=== PATIENT | male | born 1990 | race African-American/Black ===

== ENCOUNTER 2017-10-19 22:31 | Emergency (ER) | payer MEDICAID ==
[~2017-10-19] VITALS: Ht 177.8 cm; Wt 94.0 kg
[~2017-10-19 22:31] MED LIST: NO HOME MEDS
[2017-10-19] MEDS ORDERED: ondansetron/PF 4mg/2ml inj IV ONE (23:30)
[2017-10-19] MEDS ORDERED: methylPREDNISolone sod succ 125mg/2ml vial IV ONE (23:30)
[2017-10-19] MEDS ORDERED: morphine 2 MG/ML inj. syringe IV ONE (23:30)
[2017-10-19] MEDS ORDERED: normal saline 1000ML IV soln IVB ONE (23:30)
[2017-10-19 23:55] LABS: BASOPHILS # (AUTO) 0.1 X10'3 (0-0.2); BASOPHILS % (AUTO) 0.4 % (0-1); EOSINOPHILS # (AUTO) 0.3 X10'3 (0-0.9); EOSINOPHILS % (AUTO) 1.6 % (0-6); HEMATOCRIT 39.2 % (42.0-52.0); HEMOGLOBIN 13.2 g/dl (14.0-17.9); LYMPHOCYTES # (AUTO) 2.1 X10'3 (1.1-4.8); LYMPHOCYTES % (AUTO) 12.2 % (21-51); MEAN CORPUSCULAR HEMOGLOBIN 27.3 PG (27.0-31.0); MEAN CORPUSCULAR HGB CONC 33.7 % (33.0-36.5); MEAN CORPUSCULAR VOLUME 80.9 FL (78-98); MONOCYTES # (AUTO) 1.1 X10'3 (0-0.9); MONOCYTES % (AUTO) 6.3 % (2-12); NEUTROPHILS # (AUTO) 13.5 X10'3 (1.8-7.7); NEUTROPHILS % (AUTO) 79.5 % (42-75); PLATELET COUNT 195 X10'3 (140-440); RED BLOOD COUNT 4.85 X10'6 (4.70-6.10); RED CELL DISTRIBUTION WIDTH 14.7 % (11.5-14.5); WHITE BLOOD COUNT 16.9 X10'3 (4.5-11.0)
[2017-10-20 00:11] LABS: ALANINE AMINOTRANSFERASE 36 U/L (12-78); ALBUMIN 3.6 G/DL (3.4-5.0); ALBUMIN/GLOBULIN RATIO 1.1 (1.1-1.5); ALKALINE PHOSPHATASE 70 IU/L (46-116); ANION GAP 9 (8-16); ASPARTATE AMINO TRANSFERASE 19 U/L (10-37); BILIRUBIN,TOTAL 0.2 MG/DL (0.1-1.0); BLOOD UREA NITROGEN 14 MG/DL (7-18); BUN/CREATININE RATIO 10.2 (5.4-32.0); CALCIUM 8.6 MG/DL (8.5-10.1); CHLORIDE 104 MMOL/L (99-107); CREATININE 1.37 MG/DL (0.60-1.10); GLUCOSE 104 MG/DL (70-104); LIPASE 158 U/L (73-393); POTASSIUM 4.8 MMOL/L (3.5-5.1); SODIUM 140 MMOL/L (135-145); TOTAL CARBON DIOXIDE 26.7 MMOL/L (24-32); eGFR 74 ML/MIN
[2017-10-20] MEDS ORDERED: iohexol 300mg/ml 100ml inj. ONE (00:15)
[2017-10-20] MEDS ORDERED: ondansetron/PF 4mg/2ml inj IV ONE (01:40)
[2017-10-20] MEDS ORDERED: morphine 4 MG/ML inj SYRINge IV ONE (01:40)
[2017-10-20] MEDS ORDERED: HYDR-3965 PO (01:45)
[2017-10-20] MEDS ORDERED: LOPE-155 PO (01:45)
[2017-10-20 01:58] VITALS: BP 127/73
== END 2017-10-20 03:09 | disposition home or self-care (01) ==
LOC: ER 22:32
DX: K52.9 Noninfective gastroenteritis and colitis, unspecified (principal); K92.1 Melena; F17.200 Nicotine dependence, unspecified, uncomplicated; F12.10 Cannabis abuse, uncomplicated; Z88.8 Allergy status to other drugs, medicaments and biological substances; Z79.899 Other long term (current) drug therapy
CPT/HCPCS: 36415; 74177; 80053; 83690; 85025; 85651; 96361; 96374; 96375; 96376; 99285; J2270; J2405; J2930; J7030; Q9967

== ENCOUNTER 2017-11-11 19:55 | Emergency (ER) | payer MEDICAID ==
[~2017-11-11] VITALS: Ht 175.3 cm; Wt 89.7 kg
[~2017-11-11 19:55] MED LIST changes: +HYDR-3965 PO; +LOPE-155 PO
[2017-11-11] MEDS ORDERED: OMEP40CA37 PO (20:11)
[2017-11-11] MEDS ORDERED: PRED5TAB PO (20:11)
[2017-11-11] MEDS ORDERED: ONDA4TAB6 PO (20:11)
[2017-11-11] MEDS ORDERED: DICY10CA88 PO (20:11)
[2017-11-11 22:37] LABS: BASOPHILS # (AUTO) 0.1 X10'3 (0-0.2); BASOPHILS % (AUTO) 0.2 % (0-1); EOSINOPHILS # (AUTO) 0.1 X10'3 (0-0.9); EOSINOPHILS % (AUTO) 0.4 % (0-6); HEMATOCRIT 41.1 % (42.0-52.0); HEMOGLOBIN 13.8 g/dl (14.0-17.9); LYMPHOCYTES # (AUTO) 1.5 X10'3 (1.1-4.8); LYMPHOCYTES % (AUTO) 6.9 % (21-51); MEAN CORPUSCULAR HEMOGLOBIN 27.6 PG (27.0-31.0); MEAN CORPUSCULAR HGB CONC 33.5 % (33.0-36.5); MEAN CORPUSCULAR VOLUME 82.3 FL (78-98); MEAN PLATELET VOLUME 7.7 FL (7.4-10.4); MONOCYTES # (AUTO) 0.7 X10'3 (0-0.9); MONOCYTES % (AUTO) 3.2 % (2-12); NEUTROPHILS % (AUTO) 89.3 % (42-75); PLATELET COUNT 194 X10'3 (140-440); RED CELL DISTRIBUTION WIDTH 14.9 % (11.5-14.5); WHITE BLOOD COUNT 22.4 X10'3 (4.5-11.0)
[2017-11-11 22:59] LABS: ALANINE AMINOTRANSFERASE 50 U/L (12-78); ALBUMIN 3.8 G/DL (3.4-5.0); ALKALINE PHOSPHATASE 53 IU/L (46-116); ANION GAP 10 (8-16); ASPARTATE AMINO TRANSFERASE 18 U/L (10-37); BILIRUBIN,TOTAL 0.3 MG/DL (0.1-1.0); BLOOD UREA NITROGEN 19 MG/DL (7-18); BUN/CREATININE RATIO 16.1 (5.4-32.0); CHLORIDE 104 MMOL/L (99-107); CREATININE 1.18 MG/DL (0.60-1.10); GLUCOSE 108 MG/DL (70-104); LIPASE 157 U/L (73-393); SODIUM 141 MMOL/L (135-145); TOTAL CARBON DIOXIDE 27.2 MMOL/L (24-32); TOTAL PROTEIN 7.5 G/DL (6.4-8.2); eGFR 88 ML/MIN
[2017-11-12 00:02] LABS: CLARITY,URINE CLEAR (Clear); COLOR,URINE YELLOW (Yellow); GLUCOSE, URINE NEGATIVE (Neg); KETONES,URINE NEGATIVE (Neg); LEUKOCYTE ESTERASE ,URINE NEGATIVE (Neg); NITRITES, URINE NEGATIVE (Neg); OCCULT BLOOD,URINE NEGATIVE (Neg); PROTEIN,URINE NEGATIVE (Neg)
[2017-11-12 00:06] LABS: UA COLLECTION TYPE CLN CATCH MIDSTREAM
[2017-11-12 02:00] VITALS: BP 113/43
== END 2017-11-12 03:04 | disposition home or self-care (01) ==
LOC: ER 19:57
DX: R10.11 Right upper quadrant pain (principal); F12.10 Cannabis abuse, uncomplicated; Z88.8 Allergy status to other drugs, medicaments and biological substances; Z79.899 Other long term (current) drug therapy
CPT/HCPCS: 36415; 76700; 80053; 81003; 83605; 83690; 84145; 85025; 85610; 87040; 99285

== ENCOUNTER 2019-01-28 05:29 | Emergency (ER) | payer MEDICAID ==
[~2019-01-28] VITALS: Ht 175.3 cm; Wt 106.5 kg
[~2019-01-28 05:29] MED LIST changes: +DICY10CA88 PO; -HYDR-3965 PO; +OMEP40CA37 PO; +ONDA4TAB6 PO; +PRED5TAB PO
[2019-01-28] MEDS ORDERED: ondansetron/PF 4mg/2ml inj IV ONE (07:25)
[2019-01-28 07:41] LABS: BASOPHILS # (AUTO) 0.1 X10'3 (0-0.2); BASOPHILS % (AUTO) 1.1 % (0-1); EOSINOPHILS # (AUTO) 0.2 X10'3 (0-0.9); EOSINOPHILS % (AUTO) 1.3 % (0-6); HEMATOCRIT 38.1 % (42.0-52.0); HEMOGLOBIN 12.3 g/dl (14.0-17.9); LYMPHOCYTES # (AUTO) 3.3 X10'3 (1.1-4.8); LYMPHOCYTES % (AUTO) 28.2 % (21-51); MEAN CORPUSCULAR HEMOGLOBIN 24.9 PG (27.0-31.0); MEAN CORPUSCULAR HGB CONC 32.2 g/dL (33.0-36.5); MEAN CORPUSCULAR VOLUME 77.5 FL (78-98); MEAN PLATELET VOLUME 8.1 FL (7.4-10.4); MONOCYTES # (AUTO) 0.9 X10'3 (0-0.9); NEUTROPHILS # (AUTO) 7.2 X10'3 (1.8-7.7); NEUTROPHILS % (AUTO) 61.4 % (42-75); PLATELET COUNT 240 X10'3 (140-440); RED BLOOD COUNT 4.92 X10'6 (4.70-6.10); RED CELL DISTRIBUTION WIDTH 14.4 % (11.5-14.5); WHITE BLOOD COUNT 11.7 X10'3 (4.5-11.0)
[2019-01-28 07:48] LABS: ALANINE AMINOTRANSFERASE 26 U/L (12-78); ALBUMIN 4.2 G/DL (3.4-5.0); ALKALINE PHOSPHATASE 115 IU/L (46-116); ANION GAP 7 (8-16); ASPARTATE AMINO TRANSFERASE 19 U/L (10-37); BILIRUBIN,TOTAL 0.4 MG/DL (0.1-1.0); BLOOD UREA NITROGEN 14 MG/DL (7-18); BUN/CREATININE RATIO 12.5 (5.4-32.0); CALCIUM 9.2 MG/DL (8.5-10.1); CHLORIDE 105 MMOL/L (99-107); CREATININE 1.12 MG/DL (0.60-1.10); GLUCOSE 93 MG/DL (70-104); SODIUM 137 MMOL/L (135-145); TOTAL CARBON DIOXIDE 24.7 MMOL/L (24-32); TOTAL PROTEIN 8.3 G/DL (6.4-8.2); eGFR > 90 ML/MIN
--- NOTE | 2019-01-28 08:23 | NUR ---
pt up to the bathroom,tsh result pending.
[2019-01-28 08:57] VITALS: BP 166/73
== END 2019-01-28 08:51 | disposition home or self-care (01) ==
LOC: ER 05:30
DX: R55 Syncope and collapse (principal); I10 Essential (primary) hypertension; F17.200 Nicotine dependence, unspecified, uncomplicated; G89.29 Other chronic pain; M54.5 Low back pain; Z91.011 Allergy to milk products; Z79.899 Other long term (current) drug therapy
CPT/HCPCS: 36415; 70450; 80053; 84443; 84484; 85025; 93005; 96374; 99284; J2405

== ENCOUNTER 2019-03-26 16:54 | Emergency (ER) | payer MEDICAID ==
[~2019-03-26] VITALS: Ht 172.7 cm; Wt 105.5 kg
[~2019-03-26 16:54] MED LIST changes: -LOPE-155 PO; +LOPE-190 PO; +OMEP40CA13 PO; -OMEP40CA37 PO
[2019-03-26] MEDS ORDERED: LORazepam 2 mg/ml vial IV ONE (17:05)
[2019-03-26] MEDS ORDERED: meclizine 12.5mg tablet PO ONE (17:05)
[2019-03-26] MEDS ORDERED: normal saline 1000ML IV soln IV ONE (17:05)
[2019-03-26 17:36] LABS: CLARITY,URINE CLEAR (Clear); COLOR,URINE STRAW (Yellow); GLUCOSE, URINE NEGATIVE (Neg); KETONES,URINE NEGATIVE (Neg); LEUKOCYTE ESTERASE ,URINE NEGATIVE (Neg); NITRITES, URINE NEGATIVE (Neg); OCCULT BLOOD,URINE NEGATIVE (Neg); PROTEIN,URINE NEGATIVE (Neg); UROBILINOGEN,URINE 0.2 E.U/dL (0.2-1.0)
[2019-03-26 17:38] LABS: BASOPHILS # (AUTO) 0.1 X10'3 (0-0.2); BASOPHILS % (AUTO) 1.2 % (0-1); EOSINOPHILS # (AUTO) 0.2 X10'3 (0-0.9); EOSINOPHILS % (AUTO) 2.1 % (0-6); HEMATOCRIT 38.5 % (42.0-52.0); HEMOGLOBIN 12.4 g/dl (14.0-17.9); LYMPHOCYTES # (AUTO) 3.2 X10'3 (1.1-4.8); LYMPHOCYTES % (AUTO) 35.8 % (21-51); MEAN CORPUSCULAR HEMOGLOBIN 24.5 PG (27.0-31.0); MEAN CORPUSCULAR HGB CONC 32.2 g/dL (33.0-36.5); MEAN PLATELET VOLUME 8.1 FL (7.4-10.4); MONOCYTES # (AUTO) 0.7 X10'3 (0-0.9); MONOCYTES % (AUTO) 7.5 % (2-12); NEUTROPHILS # (AUTO) 4.8 X10'3 (1.8-7.7); NEUTROPHILS % (AUTO) 53.4 % (42-75); PLATELET COUNT 210 X10'3 (140-440); RED BLOOD COUNT 5.06 X10'6 (4.70-6.10); RED CELL DISTRIBUTION WIDTH 15.5 % (11.5-14.5); UA COLLECTION TYPE URINAL
[2019-03-26] MEDS ORDERED: ketorolac trometh. 30mg/ml inj. IV ONE (17:45)
[2019-03-26] MEDS ORDERED: diphenhydrAMINE 50 mg/ml inj IV ONE (17:45)
[2019-03-26] MEDS ORDERED: metoclopramide 5 mg/ml inj IV ONE (17:45)
[2019-03-26 17:52] LABS: ALANINE AMINOTRANSFERASE 32 U/L (12-78); ALBUMIN 3.8 G/DL (3.4-5.0); ALKALINE PHOSPHATASE 105 IU/L (46-116); ANION GAP 10 (8-16); ASPARTATE AMINO TRANSFERASE 16 U/L (10-37); BILIRUBIN,TOTAL 0.2 MG/DL (0.1-1.0); BLOOD UREA NITROGEN 8 MG/DL (7-18); BUN/CREATININE RATIO 7.9 (5.4-32.0); CHLORIDE 106 MMOL/L (99-107); CREATININE 1.01 MG/DL (0.60-1.10); GLUCOSE 84 MG/DL (70-104); POTASSIUM 4.2 MMOL/L (3.5-5.1); SODIUM 142 MMOL/L (135-145); TOTAL CARBON DIOXIDE 25.9 MMOL/L (24-32); TOTAL PROTEIN 7.8 G/DL (6.4-8.2); URINE AMPHETAMINE SCREEN NEGATIVE (Neg); URINE BARBITUATE SCREEN NEGATIVE (Neg); URINE BENZODIAZEPINES SCREEN NEGATIVE (Neg); URINE CANNABINOID SCREEN POSITIVE (Neg); URINE COCAINE SCREEN NEGATIVE (Neg); URINE METHADONE SCREEN NEGATIVE (Neg); URINE OPIATE SCREEN NEGATIVE (Neg); URINE PHENCYCLIDINE SCREEN NEGATIVE (Neg); eGFR > 90 ML/MIN
[2019-03-26 17:58] LABS: PARTIAL THROMBOPLASTIN TIME 33 SECONDS (22-32)
[2019-03-26] MEDS ORDERED: MECL-111 PO (18:22)
[2019-03-26 21:13] VITALS: BP 136/93
== END 2019-03-26 21:16 | disposition home or self-care (01) ==
LOC: ER 16:55
DX: I10 Essential (primary) hypertension (principal); R42 Dizziness and giddiness; F12.90 Cannabis use, unspecified, uncomplicated; Z91.011 Allergy to milk products; Z79.899 Other long term (current) drug therapy
CPT/HCPCS: 36415; 80053; 80305; 81003; 82948; 83735; 85025; 85610; 85730; 93005; 96361; 96374; 96375; 99284; J1200; J1885; J2060; J2765; J7030; J8597

== ENCOUNTER 2019-08-28 13:42 | Emergency (ER) | payer MEDICAID ==
[~2019-08-28] VITALS: Ht 172.7 cm; Wt 105.4 kg
[~2019-08-28 13:42] MED LIST changes: +MECL-111 PO
[2019-08-28] MEDS ORDERED: normal saline 1000ML IV soln IVB ONE (16:15)
[2019-08-28] MEDS ORDERED: ondansetron/PF 4mg/2ml inj IV ONE (16:15)
--- NOTE | 2019-08-28 17:13 | NUR ---
PT GIVEN URINE CUP, AMBULATORY TO BATHROOM WITH STEADY GAIT TO PROVIDE SAMPLE PER ORDERS NOW. WILL START IV AND ADMINISTER NS IV BOLUS PER ORDERS UPON PT RETURN TO BED 10
[2019-08-28 17:37] LABS: CLARITY,URINE CLEAR (Clear); COLOR,URINE YELLOW (Yellow); GLUCOSE, URINE NEGATIVE (Neg); KETONES,URINE NEGATIVE (Neg); LEUKOCYTE ESTERASE ,URINE NEGATIVE (Neg); NITRITES, URINE NEGATIVE (Neg); OCCULT BLOOD,URINE NEGATIVE (Neg); PROTEIN,URINE NEGATIVE (Neg); UROBILINOGEN,URINE 0.2 E.U/dL (0.2-1.0)
[2019-08-28] MEDS ORDERED: metoclopramide 5 mg/ml inj IV ONE (17:40)
[2019-08-28] MEDS ORDERED: dicyclomine 10 MG capsule PO ONE (17:40)
[2019-08-28 17:43] LABS: UA COLLECTION TYPE CLN CATCH MIDSTREAM
[2019-08-28 18:01] LABS: BASOPHILS # (AUTO) 0.1 X10'3 (0-0.2); BASOPHILS % (AUTO) 1.1 % (0-1); EOSINOPHILS # (AUTO) 0.1 X10'3 (0-0.9); EOSINOPHILS % (AUTO) 1.1 % (0-6); HEMATOCRIT 38.9 % (42.0-52.0); HEMOGLOBIN 12.6 g/dl (14.0-17.9); LYMPHOCYTES # (AUTO) 3.6 X10'3 (1.1-4.8); LYMPHOCYTES % (AUTO) 27.5 % (21-51); MEAN CORPUSCULAR HEMOGLOBIN 24.5 PG (27.0-31.0); MEAN CORPUSCULAR HGB CONC 32.3 g/dL (33.0-36.5); MEAN CORPUSCULAR VOLUME 75.8 FL (78-98); NEUTROPHILS # (AUTO) 8.1 X10'3 (1.8-7.7); NEUTROPHILS % (AUTO) 62.3 % (42-75); PLATELET COUNT 245 X10'3 (140-440); RED BLOOD COUNT 5.14 X10'6 (4.70-6.10); RED CELL DISTRIBUTION WIDTH 18.3 % (11.5-14.5)
[2019-08-28 18:08] LABS: ALANINE AMINOTRANSFERASE 32 U/L (12-78); ALBUMIN 4.3 G/DL (3.4-5.0); ALBUMIN/GLOBULIN RATIO 1.1 (1.1-1.5); ALKALINE PHOSPHATASE 126 IU/L (46-116); ANION GAP 8 (8-16); ASPARTATE AMINO TRANSFERASE 19 U/L (10-37); BILIRUBIN,TOTAL 0.3 MG/DL (0.1-1.0); BLOOD UREA NITROGEN 13 MG/DL (7-18); BUN/CREATININE RATIO 10.7 (5.4-32.0); CHLORIDE 105 MMOL/L (99-107); CREATININE 1.22 MG/DL (0.60-1.10); GLUCOSE 78 MG/DL (70-104); POTASSIUM 3.9 MMOL/L (3.5-5.1); SODIUM 142 MMOL/L (135-145); TOTAL CARBON DIOXIDE 29.5 MMOL/L (24-32); TOTAL PROTEIN 8.2 G/DL (6.4-8.2); eGFR 84 ML/MIN
[2019-08-28] MEDS ORDERED: methylPREDNISolone sod succ 125mg/2ml vial IV ONE (18:10)
[2019-08-28] MEDS ORDERED: CIPR-230 PO (18:19)
[2019-08-28] MEDS ORDERED: PRED10TA23 PO (18:19)
[2019-08-28 18:31] VITALS: BP 139/103
== END 2019-08-28 18:34 | disposition home or self-care (01) ==
LOC: ER 13:43
DX: K50.90 Crohn's disease, unspecified, without complications (principal); K52.9 Noninfective gastroenteritis and colitis, unspecified; R10.84 Generalized abdominal pain; F12.90 Cannabis use, unspecified, uncomplicated; Z91.011 Allergy to milk products; Z79.899 Other long term (current) drug therapy
CPT/HCPCS: 36415; 74176; 80053; 81003; 85025; 85610; 86885; 86900; 86901; 93005; 96361; 96374; 96375; 99284; J2405; J2765; J2930; J7030

== ENCOUNTER 2020-02-07 21:02 | Emergency (ER) | payer MEDICAID ==
[~2020-02-07] VITALS: Ht 175.3 cm; Wt 101.7 kg
[~2020-02-07 21:02] MED LIST changes: -MECL-111 PO; +MECL-159 PO
[2020-02-07 21:04] VITALS: BP 150/95
[2020-02-07] MEDS ORDERED: AMOX500C2 PO (21:26)
[2020-02-07] MEDS ORDERED: BAC10T PO (21:26)
== END 2020-02-07 21:46 | disposition home or self-care (01) ==
LOC: ER 21:02
DX: K08.89 Other specified disorders of teeth and supporting structures (principal); R68.84 Jaw pain; F12.90 Cannabis use, unspecified, uncomplicated; Z88.8 Allergy status to other drugs, medicaments and biological substances; Z79.899 Other long term (current) drug therapy
CPT/HCPCS: 99283

== ENCOUNTER 2020-02-09 16:32 | Emergency (ER) | payer MEDICAID ==
[~2020-02-09] VITALS: Ht 175.3 cm; Wt 99.0 kg
[~2020-02-09 16:32] MED LIST changes: +AMOX500C2 PO; +BAC10T PO
[2020-02-09] MEDS ORDERED: acetaminophen 325mg tablet PO ONE (16:50)
[2020-02-09] MEDS ORDERED: morphine 4 MG/ML inj SYRINge IM ONE (16:50)
[2020-02-09] MEDS ORDERED: ondansetron 4mg rapidly disintigrating tab PO ONE (16:50)
[2020-02-09] MEDS ORDERED: ONDA8TAB6 PO (18:33)
[2020-02-09] MEDS ORDERED: HYDR-3965 PO (18:33)
[2020-02-09 18:38] VITALS: BP 119/70
== END 2020-02-09 18:50 | disposition home or self-care (01) ==
LOC: ER 16:33
DX: S20.312A Abrasion of left front wall of thorax, initial encounter (principal); R11.10 Vomiting, unspecified; M25.552 Pain in left hip; F12.90 Cannabis use, unspecified, uncomplicated; Z88.6 Allergy status to analgesic agent; Z88.8 Allergy status to other drugs, medicaments and biological substances; Z79.899 Other long term (current) drug therapy; V29.9XXA Motorcycle rider (driver) (passenger) injured in unspecified traffic accident, initial encounter; Y93.89 Activity, other specified; Y92.89 Other specified places as the place of occurrence of the external cause; Y99.8 Other external cause status
CPT/HCPCS: 71045; 73502; 96372; 99284; J2270

== ENCOUNTER 2020-02-28 21:51 | Emergency (ER) | payer MEDICAID ==
[~2020-02-28] VITALS: Ht 175.3 cm; Wt 99.1 kg
[~2020-02-28 21:51] MED LIST changes: +HYDR-3965 PO; +ONDA8TAB6 PO
[2020-02-28 21:59] VITALS: BP 149/94
--- NOTE | 2020-02-28 22:26 | NUR ---
PA in with PA assessing jaw and mouth
--- NOTE | 2020-02-28 22:32 | NUR ---
pt was seen by provider and was not really answering questions and being very rude and short and was told to wait for paperwork, i walked out of room to wait for paperwork. pt then walked out of room by nurses station and i asked him where he was going he then ignored me and other staff asked where he was going he continue to walk out the [facility] staff doors ignoring all staff that was talking to him.
== END 2020-02-28 22:39 | disposition home or self-care (01) ==
LOC: ER 21:52
DX: R68.84 Jaw pain (principal); H92.01 Otalgia, right ear; F12.90 Cannabis use, unspecified, uncomplicated; Z88.6 Allergy status to analgesic agent; Z88.8 Allergy status to other drugs, medicaments and biological substances; Z79.2 Long term (current) use of antibiotics; Z79.899 Other long term (current) drug therapy
CPT/HCPCS: 99281